=== PATIENT | female | born 1955 | race Caucasian/White ===

== ENCOUNTER 2017-10-25 23:04 | Inpatient (IN) | payer MEDICAID ==
[~2017-10-25] VITALS: Ht 162.6 cm; Wt 56.5 kg
[2017-10-25 23:23] VITALS: BP 120/84
[2017-10-26] VITALS (13 sets, daily range): BP systolic 101–144; BP diastolic 24–82; Ht 162.6 cm; Wt 56.5 kg
[2017-10-26] LABS: BASOPHIL % 0.2 % (0-2); PLATELET COUNT 203 x10^3mcL (130-400)
[2017-10-26 00:02] LABS: RED CELL DISTRIBUTION WIDTH 14.6 % (11.5-14.5)
[2017-10-26 00:17] LABS: CALCIUM 8.4 mg/dL (8.5-10.1); CARBON DIOXIDE 26.3 mmol/L (21-32); CHLORIDE SERUM 108 mmol/L (98-107); CREATININE SERUM 0.9 mg/dL (0.6-1.0); GFR1 > 60 mL/min; GLUCOSE SERUM 182 mg/dL (74-106); POTASSIUM SERUM 3.8 mmol/L (3.5-5.1); SODIUM SERUM 146 mmol/L (136-145)
[2017-10-26 00:23] LABS: ALBUMIN 3.5 g/dL (3.4-5.0); ALKALINE PHOSPHATASE 75 U/L (46-116); ALT/SGPT 22 U/L (14-59); AST/SGOT 26 U/L (15-37); BILIRUBIN TOTAL 0.2 mg/dL (0.20-1.00); MAGNESIUM 2.3 mg/dL (1.8-2.4); TOTAL PROTEIN, SERUM 7.7 g/dL (6.4-8.2)
[2017-10-26 00:45] LABS: UA SPECIFIC GRAVITY >=1.030 (1.005-1.035); microscopic required? YES; urine erythrocyte NEGATIVE (NEGATIVE)
[2017-10-26] MEDS ORDERED: DEPAKOTE ER500 MG PO (02:59)
[2017-10-26] MEDS ORDERED: SEROQUEL300 MG PR (03:01)
[2017-10-26] MEDS ORDERED: HALOPERIDOL2 MG PO (03:03)
[2017-10-26] MEDS ORDERED: ATIVAN0.5 M1 PO (03:04)
[2017-10-26 04:36] LABS: CHOLESTEROL/HDL RATIO 3.2; PHOSPHOROUS 5.9 mg/dL (2.5-4.9)
[2017-10-26 04:45] LABS: FREE T4 1.06 ng/dL (0.76-1.46); FREE THYROXINE INDEX 2.3 ug/dL (1.4-4.5)
[2017-10-26 05:55] LABS: T3 TOTAL 0.85 ng/mL
[2017-10-26 17:07] LABS: PLATELET COUNT 136 x10^3mcL (130-400); RED CELL DISTRIBUTION WIDTH 14.4 % (11.5-14.5)
[2017-10-26 17:10] LABS: CALCIUM 8.5 mg/dL (8.5-10.1); CARBON DIOXIDE 21.5 mmol/L (21-32); CHLORIDE SERUM 113 mmol/L (98-107); CREATININE SERUM 0.5 mg/dL (0.6-1.0); GFR1 > 60 mL/min; GLUCOSE SERUM 94 mg/dL (74-106); MAGNESIUM 1.8 mg/dL (1.8-2.4); PHOSPHOROUS 2.6 mg/dL (2.5-4.9); POTASSIUM SERUM 3.7 mmol/L (3.5-5.1); SODIUM SERUM 145 mmol/L (136-145)
[2017-10-26 17:30] LABS: AMPHETAMINE QUAL UR NONE DETECTED (NEG <=1000)
[2017-10-26 20:09] LABS: BAND NEUTROPHIL 13 % (0-10); BASOPHIL 0 % (0-2); MONOCYTE 9 % (0-7); SEGMENTED NEUTROPHILS 70 % (37-75); rbc morphology (normal/abnorm) NORMAL (NORMAL)
[2017-10-27] VITALS (11 sets, daily range): BP systolic 87–156; BP diastolic 52–83
[2017-10-27 06:05] LABS: CALCIUM 8.2 mg/dL (8.5-10.1); CARBON DIOXIDE 23.3 mmol/L (21-32); CHLORIDE SERUM 111 mmol/L (98-107); CREATININE SERUM 0.6 mg/dL (0.6-1.0); GFR1 > 60 mL/min; GLUCOSE SERUM 81 mg/dL (74-106); MAGNESIUM 1.9 mg/dL (1.8-2.4); PHOSPHOROUS 2.7 mg/dL (2.5-4.9); POTASSIUM SERUM 3.2 mmol/L (3.5-5.1); SODIUM SERUM 146 mmol/L (136-145)
[2017-10-27 06:12] LABS: BASOPHIL % 0.3 % (0-2); PLATELET COUNT 105 x10^3mcL (130-400); RED CELL DISTRIBUTION WIDTH 14.8 % (11.5-14.5)
[2017-10-28] VITALS (7 sets, daily range): BP systolic 103–151; BP diastolic 56–89
[2017-10-28] MEDS ORDERED: ARICEPT5 MG PO (12:54)
[2017-10-28] MEDS ORDERED: GOOD SENSE ASPI81 M3 PO (12:54)
[2017-10-28] MEDS ORDERED: NAMENDA10 M2 PO (12:54)
== END 2017-10-28 20:30 | disposition hospice, home (50) | DRG 720 ==
LOC: ED 23:04 → IC 10-26 02:03 → DU 10-27 23:38
PROVIDERS: Emergency Medicine; Family Medicine; Student in an Organized Health Care Education/Training Program
PROC: 0BH17EZ Insertion of Endotracheal Airway into Trachea, Via Natural or Artificial Opening (ICD-10-PCS; principal; 2017-10-25)
PROC: 5A1945Z Respiratory Ventilation, 24-96 Consecutive Hours (ICD-10-PCS; 2017-10-25)
PROC: 05HN33Z Insertion of Infusion Device into Left Internal Jugular Vein, Percutaneous Approach (ICD-10-PCS; 2017-10-27)
PROC: B544ZZA Ultrasonography of Left Jugular Veins, Guidance (ICD-10-PCS; 2017-10-27)
DX: A41.9 Sepsis, unspecified organism (principal); N17.0 Acute kidney failure with tubular necrosis; J96.01 Acute respiratory failure with hypoxia; J69.0 Pneumonitis due to inhalation of food and vomit; K85.90 Acute pancreatitis without necrosis or infection, unspecified; R65.20 Severe sepsis without septic shock; E87.0 Hyperosmolality and hypernatremia; E83.39 Other disorders of phosphorus metabolism; G30.9 Alzheimer's disease, unspecified; F02.80 Dementia in other diseases classified elsewhere, unspecified severity, without behavioral disturbance, psychotic disturbance, mood disturbance, and anxiety; G40.909 Epilepsy, unspecified, not intractable, without status epilepticus; E87.6 Hypokalemia; D64.9 Anemia, unspecified; Z68.1 Body mass index [BMI] 19.9 or less, adult; Z66 Do not resuscitate; Z51.5 Encounter for palliative care
CPT/HCPCS: 36600; 83880; 84439; 87804; J0295; J1642; J1956; J2060; J2270; J2405; J2704; J3490; J7030; Q0092